=== PATIENT | female | born 1950 | race Caucasian/White ===

== ENCOUNTER → 2017-11-20 | Outpatient (CLI) | payer SELFPAY ==
[2017-11-20 16:58] LABS: BASOPHILS ABSOLUTE AUTO 0.02 K/mm3 (0.00-0.23); BASOPHILS PERCENT AUTO 1 % (0-2); EOSINOPHILS ABSOLUTE AUTO 0.05 K/mm3 (0.00-0.68); EOSINOPHILS PERCENT AUTO 1 % (0-6); Hematocrit 33.9 % (33.0-51.0); Hemoglobin 10.2 g/dL (11.5-16.0); IMMATURE GRAN ABSOLUTE AUTO 0.01 K/mm3 (0.00-0.10); IMMATURE GRAN PERCENT AUTO 0 % (0-1); LYMPHOCYTES ABSOLUTE AUTO 0.87 K/mm3 (0.84-5.20); LYMPHOCYTES PERCENT AUTO 24 % (21-46); MONOCYTES ABSOLUTE AUTO 0.64 K/mm3 (0.16-1.47); MONOCYTES PERCENT AUTO 18 % (4-13); Mean Corpuscular HGB 25.4 pg (26.0-34.0); Mean Corpuscular HGB Conc 30.1 g/dL (31.5-36.5); Mean Corpuscular Volume 84 fL (80-100); Mean Platelet Volume 8.9 fL (9.1-12.4); NEUTROPHILS ABSOLUTE AUTO 2.04 K/mm3 (1.96-9.15); NEUTROPHILS PERCENT AUTO 56 % (41-73); Platelet Count 256 K/mm3 (150-400); RDW Coefficient Variation 16.4 % (11.7-14.2); RDW Standard Deviation 50.4 fL (35.1-46.3); Red Blood Cell Count 4.02 M/mm3 (3.80-5.20); White Blood Cell Count 3.63 K/mm3 (4.00-11.30)
== END ==
LOC: LAB SHORT 16:20 → LAB 16:20
PROVIDERS: Physician Assistant
DX: N39.0 Urinary tract infection, site not specified (principal); R05 Cough
CPT/HCPCS: 85025; 87086

== ENCOUNTER → 2017-12-19 | Outpatient (CLI) | payer OTHER | LOC: LAB 15:21 → LAB SHORT 15:21 | DX: N39.0 Urinary tract infection, site not specified (principal) | CPT/HCPCS: 87086 ==

== ENCOUNTER → 2018-11-09 | Outpatient (CLI) | payer OTHER | END | disposition home or self-care (01) | LOC: LAB 17:03 → LAB SHORT 17:03 | DX: H92.11 Otorrhea, right ear (principal) | CPT/HCPCS: 87070; 87205 ==

== ENCOUNTER 2019-06-24 14:23 | Observation (INO) | payer OTHER ==
[~2019-06-24] VITALS: Ht 154.9 cm; Wt 83.0 kg
[2019-06-24] MEDS ORDERED: IBUP400 PO (14:58)
[2019-06-24] MEDS ORDERED: BUPROPION XL450 MG PO ×2 (14:59)
[2019-06-24] MEDS ORDERED: LEVSOD100 PO ×2 (15:01)
[2019-06-24 15:02] LABS: BASOPHILS ABSOLUTE AUTO 0.03 K/mm3 (0.00-0.23); BASOPHILS PERCENT AUTO 1 % (0-2); EOSINOPHILS ABSOLUTE AUTO 0.17 K/mm3 (0.00-0.68); EOSINOPHILS PERCENT AUTO 3 % (0-6); Hematocrit 31.6 % (33.0-51.0); Hemoglobin 9.4 g/dL (11.5-16.0); IMMATURE GRAN ABSOLUTE AUTO 0.02 K/mm3 (0.00-0.10); IMMATURE GRAN PERCENT AUTO 0 % (0-1); LYMPHOCYTES ABSOLUTE AUTO 1.02 K/mm3 (0.84-5.20); LYMPHOCYTES PERCENT AUTO 16 % (21-46); MONOCYTES ABSOLUTE AUTO 0.44 K/mm3 (0.16-1.47); MONOCYTES PERCENT AUTO 7 % (4-13); Mean Corpuscular HGB 26.9 pg (26.0-34.0); Mean Corpuscular HGB Conc 29.7 g/dL (31.5-36.5); Mean Corpuscular Volume 91 fL (80-100); Mean Platelet Volume 8.6 fL (9.1-12.4); NEUTROPHILS ABSOLUTE AUTO 4.76 K/mm3 (1.96-9.15); NEUTROPHILS PERCENT AUTO 74 % (41-73); Platelet Count 274 K/mm3 (150-400); RDW Coefficient Variation 15.9 % (11.7-14.2); RDW Standard Deviation 52.9 fL (35.1-46.3); Red Blood Cell Count 3.49 M/mm3 (3.80-5.20); White Blood Cell Count 6.44 K/mm3 (4.00-11.30)
[2019-06-24 15:20] LABS: Alanine Aminotransfer (ALT/SGP 15 U/L (12-78); Albumin, Blood 2.9 g/dL (3.4-5.0); Albumin/Globulin Ratio 0.8 (0.8-1.8); Alk Phos 51 U/L (50-136); Anion Gap 5 mmol/L (6-16); Aspartate Aminotrans (AST/SGOT 11 U/L (12-37); Bilirubin, Total 0.3 mg/dL (0.1-1.0); Blood Urea Nitrogen 24 mg/dL (8-24); Bun/Creatinine Ratio 25.1 (12.0-20.0); CO2, Blood 28 mmol/L (21-32); Chloride, Blood 112 mmol/L (98-108); Creatinine, Blood 0.96 mg/dL (0.40-1.00); Globulin, Blood 3.5 g/dL (2.2-4.0); Glomerular Filtration Rate >60 (60-); Glucose, Blood 93 mg/dL (70-99); Potassium, Blood 4.5 mmol/L (3.5-5.5); Sodium, Blood 145 mmol/L (136-145); Total Protein, Blood 6.4 g/dL (6.4-8.2)
[2019-06-24] MEDS ORDERED: Ventolin/Prove6.7 GM INH ×2 (17:34)
[2019-06-24] MEDS ORDERED: Prozac40 MG PO ×2 (17:37)
[2019-06-24] MEDS ORDERED: Aspir 8181 MG PO ×2 (19:59)
[2019-06-24] MEDS ORDERED: VITAMIN D PO ×2 (19:59)
[2019-06-24] MEDS ORDERED: B Complex-Foli1 EACH PO ×2 (20:00)
[2019-06-24 20:02] LABS: Troponin I <0.015 ng/mL (0.000-0.040)
[2019-06-24] MEDS ORDERED: LORA1SY PO ×2 (21:40)
[2019-06-25 01:35] LABS: Hematocrit 29.1 % (33.0-51.0); Hemoglobin 8.6 g/dL (11.5-16.0); Mean Corpuscular HGB 26.6 pg (26.0-34.0); Mean Corpuscular HGB Conc 29.6 g/dL (31.5-36.5); Mean Corpuscular Volume 90 fL (80-100); Mean Platelet Volume 8.2 fL (9.1-12.4); Platelet Count 240 K/mm3 (150-400); RDW Coefficient Variation 15.8 % (11.7-14.2); Red Blood Cell Count 3.23 M/mm3 (3.80-5.20)
[2019-06-25 01:51] LABS: Anion Gap 6 mmol/L (6-16); Blood Urea Nitrogen 21 mg/dL (8-24); Bun/Creatinine Ratio 21.9 (12.0-20.0); CO2, Blood 28 mmol/L (21-32); Calcium, Blood 8.6 mg/dL (8.5-10.1); Chloride, Blood 113 mmol/L (98-108); Creatinine, Blood 0.96 mg/dL (0.40-1.00); Glomerular Filtration Rate >60 (60-); Glucose, Blood 99 mg/dL (70-99); Potassium, Blood 3.9 mmol/L (3.5-5.5); Sodium, Blood 147 mmol/L (136-145)
--- NOTE | 2019-06-25 10:45 | NUR ---
0750 IT WAS NOTED AT SHIFT CHANGE THAT PT HAS BEEN TOLD THAT RASH TO LLQ ABD MAYBE SHINGLES BY HER PCP AND ER PHYSICIAN PER PT REPORT. RASH ASSESSED, RED RAISED BLISTERY RASH INTACT WITH NO DRAINAGE, PT REPORTS PAIN 9/10 THAT RADIATES FROM ABD TO BACK. INFECTION CONTROL AND CN NOTIFIED, AIRBORNE PRECAUTIONS INITITATED. PT'S PAIN MANAGED WELL WITH CURRENT ORDERS. BOWEL PREP STARTED. NO N/V, SOB. SMALL ABRASION TO NOSE SCABBED. 1012 PT TRANSFERED FROM RM 304 TO RM 335 FOR NEGATIVE PRESSURE ROOM PER PROTOCOL. REPORT GIVEN TO DORA MICHELLE AND DORA MCCLURE PRIOR TO TRANSFER. DR. DELEON IN TO SEE PT PRIOR TO TRANSFER.
--- NOTE | 2019-06-25 14:20 | NUR ---
Echocardiogram completed.
--- NOTE | 2019-06-25 17:23 | NUR ---
PT TRANSFERED TO NEGATIVE PRESSURE ROOM THIS AM FOR SUSPECTED SHINGLES. PT INDEPENDENT IN ROOM. PT ON GO-LYTELY FOR COLONOSCOMY. PT BOWEL MOVEMENTS CONTINUE TO BE BROWN AND CONTAIN MODERATE AMOUNTS OF STOOL. PT MEDICATED FOR PAIN RELATED TO SUSPECTED SHINGLES. PT STATES ACCEPTABLE LEVEL OF PAIN AT THIS TIME. PT RESTING IN BED BETWEEN BOWEL MOVEMENTS. WILL CONTINUE TO MONITOR.
--- NOTE | 2019-06-25 18:26 | NUR ---
FIELD START IV TO LEFT AC PATENT, BUT LEAKING SLIGHTLY. WILL MONITOR.
--- NOTE | 2019-06-25 18:54 | NUR ---
06/25/19 1854 Eliseo Adair PATIENT DETERMINED TO BE ASA APPROPRIATE FOR PROPOFOL SEDATION PRIOR TO START OF PROCEDURE BY DR. Celena Ivan PlacedPatient to ENDO 1. History, Chart, Medications and Allergies reviewed before start of procedure. MONITOR INTACT WITH CONTINUOUS PULSE OXIMETRY AND INTERMITTENT BP. O2 VIA N/C INTACT THROUGHOUT SEDATION/PROCEDURE.
--- NOTE | 2019-06-26 05:24 | NUR ---
PATIENT HAD BEEN ABLE TO DRINK APPROXIMATELY 1200CC OF GOLYTE. SHE HAS BEEN ABLE TO GET TO THE [facility] INDEPENDENTLY. HER STOOL IS MORE CLEAR WITH LIGHT BROWN GRAINS IN THE CLEAR WATER. sHE IS INSTRUCTED TO CONTINUE TO DRINK THE GOLYTE UNTIL APPROX. 7AM.
[2019-06-26 05:47] LABS: BASOPHILS ABSOLUTE AUTO 0.02 K/mm3 (0.00-0.23); BASOPHILS PERCENT AUTO 0 % (0-2); EOSINOPHILS ABSOLUTE AUTO 0.11 K/mm3 (0.00-0.68); EOSINOPHILS PERCENT AUTO 3 % (0-6); Hematocrit 29.8 % (33.0-51.0); Hemoglobin 8.8 g/dL (11.5-16.0); IMMATURE GRAN ABSOLUTE AUTO 0.01 K/mm3 (0.00-0.10); IMMATURE GRAN PERCENT AUTO 0 % (0-1); LYMPHOCYTES ABSOLUTE AUTO 0.87 K/mm3 (0.84-5.20); LYMPHOCYTES PERCENT AUTO 20 % (21-46); MONOCYTES ABSOLUTE AUTO 0.44 K/mm3 (0.16-1.47); MONOCYTES PERCENT AUTO 10 % (4-13); Mean Corpuscular HGB 26.7 pg (26.0-34.0); Mean Corpuscular HGB Conc 29.5 g/dL (31.5-36.5); Mean Corpuscular Volume 90 fL (80-100); Mean Platelet Volume 8.6 fL (9.1-12.4); NEUTROPHILS PERCENT AUTO 67 % (41-73); Platelet Count 237 K/mm3 (150-400); RDW Standard Deviation 52.7 fL (35.1-46.3); White Blood Cell Count 4.45 K/mm3 (4.00-11.30)
[2019-06-26 06:04] LABS: Anion Gap 6 mmol/L (6-16); Blood Urea Nitrogen 8 mg/dL (8-24); Bun/Creatinine Ratio 8.8 (12.0-20.0); CO2, Blood 27 mmol/L (21-32); Chloride, Blood 111 mmol/L (98-108); Creatinine, Blood 0.91 mg/dL (0.40-1.00); Glomerular Filtration Rate >60 (60-); Glucose, Blood 80 mg/dL (70-99); Sodium, Blood 144 mmol/L (136-145)
--- NOTE | 2019-06-26 09:08 | NUR ---
INTO SDS VIA [email or web address]. PT REPORTS 6/10 LEFT GROIN PAIN THAT RADIATES TO HER BACK. NPO STATUS CONFIRMED. BOWEL PREP CONFIRMED TO BE CLEAR.
--- NOTE | 2019-06-26 09:18 | NUR ---
06/26/19 0918 Eliseo Adair PATIENT DETERMINED TO BE ASA APPROPRIATE FOR PROPOFOL SEDATION PRIOR TO START OF PROCEDURE BY DR. Celena Ivan Placed3-LEAD EKG REVIEWED WITH PHYSICIAN PRIOR TO START OF PROCEDURE.Patient to ENDO 1History, Chart, Medications and Allergies reviewed before start of procedure.LUNGS CLEAR T/O TO AUSCULTATION.MONITOR INTACT WITH CONTINUOUS PULSE OXIMETRY AND INTERMITTENT BP.O2 VIA N/C INTACT THROUGHOUT SEDATION/PROCEDURE.
--- NOTE | 2019-06-26 14:09 | NUR ---
SHE WAS CLEAR AFTER HER BOWEL PREP. SHE HAD AN UPPER AND LOWER GI SCOPE THIS MORNING. SHE WAS STABLE AFTERWARDS. HER BP DROPPED SOME WHEN SHE SAT UP DURING ORTHOSTATIC VS BUT WENT RIGHT BACK UP WHEN SHE STOOD. NO DIZZINESS, CP OR SOB. SHE RECEIVED IV FENTANYL X1 FOR HER SHINGLES PAIN AT HER L INGUINAL AREA. IT HELPED. I STARTED A FENTANYL PATCH AND LATER WILL DC HER HOME. FAMILY VISITED X1 SO FAR TODAY. SHE IS NAPPING NOW. TELE NSR. SHE HAS BEEN IN AIRBORNE ISOLATION FOR SHINGLES. IT IS A SMALL PATCH AND THEY ARE DRY.
[2019-06-26] MEDS ORDERED: ACET325 PO ×2 (14:22)
[2019-06-26] MEDS ORDERED: MIRALAX17 GM PO ×2 (14:22)
[2019-06-26] MEDS ORDERED: Valtrex1000 MG PO ×2 (14:23)
--- NOTE | 2019-06-26 18:13 | NUR ---
DISCHARGED TO HOME AT 1727 WITH BELONGINGS AND INSTRUCTIONS. HER FENTANYL PATCH IS ON. SHE NAPPED WELL AFTER HER SCOPES IN DAY SURGERY. SHE IS STEADY ON HER FEET. NO NEW COMPLAINTS.
== END 2019-06-26 17:29 | disposition home or self-care (01) ==
LOC: ER 14:23 → MEDS 14:24 → ENPENDDIS 06-26 14:15 → MEDS 06-26 17:29
PROVIDERS: Emergency Medicine; Internal Medicine; ADMIT Internal Medicine
DX: D50.9 Iron deficiency anemia, unspecified (principal); K59.00 Constipation, unspecified; D12.3 Benign neoplasm of transverse colon; D12.5 Benign neoplasm of sigmoid colon; K63.89 Other specified diseases of intestine; K63.5 Polyp of colon; K29.41 Chronic atrophic gastritis with bleeding; K44.9 Diaphragmatic hernia without obstruction or gangrene; K31.7 Polyp of stomach and duodenum; K64.8 Other hemorrhoids; E03.9 Hypothyroidism, unspecified; E78.5 Hyperlipidemia, unspecified; E66.9 Obesity, unspecified; E86.0 Dehydration; R21 Rash and other nonspecific skin eruption; F32.9 Major depressive disorder, single episode, unspecified; Z79.899 Other long term (current) drug therapy; Z95.1 Presence of aortocoronary bypass graft; Z91.81 History of falling
CPT/HCPCS: 36415; 70450; 74176; 80048; 80053; 82272; 84443; 84484; 85025; 85027; 88305; 88342; 93306; 93880; 94640; 94760; 96365; 96375; 96376; 97162; 97530; 99285-25; A9270; G0378; J2704; J2916; J3010; J7030; J7120

== ENCOUNTER 2019-06-28 02:45 | Emergency (ER) | payer OTHER ==
[~2019-06-28] VITALS: Ht 154.9 cm; Wt 77.1 kg
[~2019-06-28 02:45] MED LIST: ACET325 PO; Aspir 8181 MG PO; B Complex-Foli1 EACH PO; BUPROPION XL450 MG PO; IBUP400 PO; LEVSOD100 PO; LORA1SY PO; MIRALAX17 GM PO; Prozac40 MG PO; VITAMIN D PO; Valtrex1000 MG PO; Ventolin/Prove6.7 GM INH
== END 2019-06-28 03:54 | disposition home or self-care (01) ==
LOC: ER 02:45
DX: I80.8 Phlebitis and thrombophlebitis of other sites (principal); Z79.899 Other long term (current) drug therapy; F32.9 Major depressive disorder, single episode, unspecified; E03.9 Hypothyroidism, unspecified; Z87.891 Personal history of nicotine dependence
CPT/HCPCS: 99283

== ENCOUNTER → 2019-10-22 | Outpatient (CLI) | payer OTHER | END | disposition home or self-care (01) | LOC: LAB 10:10 → LAB SHORT 10:10 | DX: D51.8 Other vitamin B12 deficiency anemias (principal) | CPT/HCPCS: 82607; 82746 ==

== ENCOUNTER 2020-10-24 08:05 | Day surgery (SDC) | payer MEDICARE ==
[~2020-10-24] VITALS: Ht 154.9 cm; Wt 83.1 kg
[~2020-10-24 08:05] MED LIST changes: +8 HOUR ACETAMI650 MG PO; +ALBU90OI INH; +BUPROPION XL150 M1 PO
[2020-10-24] MEDS ORDERED: ATOR20 PO (08:28)
== END 2020-10-24 10:02 | disposition home or self-care (01) ==
LOC: ORSCSDS 08:05
PROVIDERS: Ophthalmology
PROC: 08RJ3JZ Replacement of Right Lens with Synthetic Substitute, Percutaneous Approach (ICD-10-PCS; principal; 2020-10-24 09:15)
DX: H25.11 Age-related nuclear cataract, right eye (principal); Z12.11 Encounter for screening for malignant neoplasm of colon; I25.10 Atherosclerotic heart disease of native coronary artery without angina pectoris; J44.9 Chronic obstructive pulmonary disease, unspecified; E66.9 Obesity, unspecified; Z68.34 Body mass index [BMI] 34.0-34.9, adult; Z79.899 Other long term (current) drug therapy
CPT/HCPCS: A9270; J2001; J2250; J3010; J3301; J7040; V2632

== ENCOUNTER → 2021-01-20 | Outpatient (CLI) | payer MEDICARE ==
[~2021-01-20] MED LIST changes: +ATOR20 PO; +CYCL10 PO
== END ==
LOC: LAB SHORT 16:47 → LAB EV 16:47
DX: N39.0 Urinary tract infection, site not specified (principal)
CPT/HCPCS: 87086

== ENCOUNTER 2021-03-08 07:35 | Day surgery (SDC) | payer MEDICARE ==
[~2021-03-08] VITALS: Ht 154.9 cm; Wt 86.8 kg
[~2021-03-08 07:35] MED LIST changes: -CYCL10 PO
[2021-03-08] MEDS ORDERED: CYCL10 PO (07:49)
--- NOTE | 2021-03-08 07:58 | NUR ---
03/08/21 0758 Sultana Partida ([place] AT 0751.
== END 2021-03-08 09:30 | disposition home or self-care (01) ==
LOC: ORSCSDS 07:35
PROVIDERS: Ophthalmology
PROC: 08RK3JZ Replacement of Left Lens with Synthetic Substitute, Percutaneous Approach (ICD-10-PCS; principal; 2021-03-08 08:45)
DX: H25.12 Age-related nuclear cataract, left eye (principal); I10 Essential (primary) hypertension; J44.9 Chronic obstructive pulmonary disease, unspecified; F32.9 Major depressive disorder, single episode, unspecified; E66.9 Obesity, unspecified; Z68.36 Body mass index [BMI] 36.0-36.9, adult; Z79.899 Other long term (current) drug therapy
CPT/HCPCS: J2001; J2250; J3010; J3301; J7040; V2632

== ENCOUNTER → 2021-05-09 | Outpatient (CLI) | payer MEDICARE ==
[~2021-05-09] MED LIST changes: +CYCL10 PO
== END | disposition home or self-care (01) ==
LOC: LAB SHORT 16:45
DX: R82.79 Other abnormal findings on microbiological examination of urine (principal)
CPT/HCPCS: 87086

== ENCOUNTER 2021-11-24 12:59 | Emergency (ER) | payer MEDICARE ==
[~2021-11-24] VITALS: Ht 154.9 cm; Wt 86.2 kg
[2021-11-24 13:33] LABS: BASOPHILS ABSOLUTE AUTO 0.02 K/mm3 (0.00-0.23); BASOPHILS PERCENT AUTO 0 % (0-2); EOSINOPHILS ABSOLUTE AUTO 0.16 K/mm3 (0.00-0.68); EOSINOPHILS PERCENT AUTO 3 % (0-6); Hemoglobin 11.6 g/dL (11.5-16.0); IMMATURE GRAN ABSOLUTE AUTO 0.01 K/mm3 (0.00-0.10); IMMATURE GRAN PERCENT AUTO 0 % (0-1); LYMPHOCYTES ABSOLUTE AUTO 1.16 K/mm3 (0.84-5.20); LYMPHOCYTES PERCENT AUTO 24 % (21-46); MONOCYTES ABSOLUTE AUTO 0.38 K/mm3 (0.16-1.47); MONOCYTES PERCENT AUTO 8 % (4-13); Mean Corpuscular HGB 28.6 pg (26.0-34.0); Mean Corpuscular HGB Conc 30.5 g/dL (31.5-36.5); Mean Corpuscular Volume 94 fL (80-100); NEUTROPHILS ABSOLUTE AUTO 3.04 K/mm3 (1.96-9.15); NEUTROPHILS PERCENT AUTO 64 % (41-73); Platelet Count 236 K/mm3 (150-400); RDW Coefficient Variation 18.5 % (11.7-14.2); RDW Standard Deviation 64.7 fL (35.1-46.3); Red Blood Cell Count 4.05 M/mm3 (3.80-5.20); White Blood Cell Count 4.77 K/mm3 (4.00-11.30)
[2021-11-24 13:51] LABS: Albumin, Blood 3.3 g/dL (3.4-5.0); Albumin/Globulin Ratio 0.8 (0.8-1.8); Bilirubin, Total 0.4 mg/dL (0.1-1.0); Bun/Creatinine Ratio 20.9 (12.0-20.0); Calcium, Blood 9.6 mg/dL (8.5-10.1); Creatinine, Blood 0.96 mg/dL (0.40-1.00); Potassium, Blood 4.3 mmol/L (3.5-5.5); Total Protein, Blood 7.3 g/dL (6.4-8.2)
== END 2021-11-24 15:30 | disposition home or self-care (01) ==
LOC: ER 12:59
PROVIDERS: Physician Assistant
DX: R41.82 Altered mental status, unspecified (principal); R26.81 Unsteadiness on feet; E03.9 Hypothyroidism, unspecified; Z79.899 Other long term (current) drug therapy; Z87.891 Personal history of nicotine dependence
CPT/HCPCS: 36415; 70450; 80053; 85025; 93005; 93010; 99285-25

== ENCOUNTER → 2022-12-19 | Outpatient (CLI) | payer MEDICARE ==
[2022-12-19 14:35] LABS: Stool Occult Bld Immuno 1 Negative (NEGATIVE)
== END | disposition home or self-care (01) ==
LOC: LAB 11:47 → LAB SHORT 11:47
PROVIDERS: Family Medicine
DX: D50.0 Iron deficiency anemia secondary to blood loss (chronic) (principal)
CPT/HCPCS: G0328

== ENCOUNTER → 2022-12-26 | Outpatient (CLI) | payer MEDICARE ==
[2022-12-27 08:33] LABS: Stool Occult Bld Immuno 1 Negative (NEGATIVE)
== END | disposition home or self-care (01) ==
LOC: LAB SHORT 16:32 → LAB 16:32
PROVIDERS: Family Medicine
DX: D50.0 Iron deficiency anemia secondary to blood loss (chronic) (principal)
CPT/HCPCS: 82274

== ENCOUNTER → 2022-12-27 | Outpatient (CLI) | payer MEDICARE ==
[2022-12-28 09:19] LABS: Stool Occult Bld Immuno 1 Positive (NEGATIVE)
== END | disposition home or self-care (01) ==
LOC: LAB SHORT 15:47 → LAB 15:47
PROVIDERS: Family Medicine
DX: D50.0 Iron deficiency anemia secondary to blood loss (chronic) (principal)
CPT/HCPCS: 82274

== ENCOUNTER 2023-01-07 01:34 | Day surgery (SDC) | payer MEDICARE ==
[2023-01-07 14:21] VITALS: BP 130/79
== END 2023-01-07 15:15 | disposition home or self-care (01) ==
LOC: ATC 01:34
DX: D50.0 Iron deficiency anemia secondary to blood loss (chronic) (principal); E78.5 Hyperlipidemia, unspecified; E03.9 Hypothyroidism, unspecified
CPT/HCPCS: J2916

== ENCOUNTER 2023-01-14 02:32 | Day surgery (SDC) | payer MEDICARE ==
[2023-01-14 13:51] VITALS: BP 152/70
== END 2023-01-14 14:55 | disposition home or self-care (01) ==
LOC: ATC 02:32
DX: D50.0 Iron deficiency anemia secondary to blood loss (chronic) (principal); E03.9 Hypothyroidism, unspecified; E78.5 Hyperlipidemia, unspecified; R91.8 Other nonspecific abnormal finding of lung field; G89.29 Other chronic pain; M54.9 Dorsalgia, unspecified; Z79.890 Hormone replacement therapy; Z79.899 Other long term (current) drug therapy
CPT/HCPCS: 96365; J2916

== ENCOUNTER 2023-01-21 03:12 | Day surgery (SDC) | payer MEDICARE ==
[2023-01-21 13:55] VITALS: BP 137/79
== END 2023-01-21 14:58 | disposition home or self-care (01) ==
LOC: ATC 03:12
DX: D50.0 Iron deficiency anemia secondary to blood loss (chronic) (principal); E03.9 Hypothyroidism, unspecified; E78.5 Hyperlipidemia, unspecified
CPT/HCPCS: J2916

== ENCOUNTER 2023-06-17 14:58 | Emergency (ER) | payer MEDICARE ==
[~2023-06-17] VITALS: Ht 154.9 cm; Wt 86.2 kg
[2023-06-17 15:25] LABS: BASOPHILS ABSOLUTE AUTO 0.03 K/mm3 (0.00-0.23); BASOPHILS PERCENT AUTO 1 % (0-2); EOSINOPHILS ABSOLUTE AUTO 0.22 K/mm3 (0.00-0.68); EOSINOPHILS PERCENT AUTO 5 % (0-6); Hematocrit 38.1 % (33.0-51.0); Hemoglobin 12.3 g/dL (11.5-16.0); IMMATURE GRAN ABSOLUTE AUTO 0.04 K/mm3 (0.00-0.10); IMMATURE GRAN PERCENT AUTO 1 % (0-1); LYMPHOCYTES ABSOLUTE AUTO 1.57 K/mm3 (0.84-5.20); LYMPHOCYTES PERCENT AUTO 33 % (21-46); MONOCYTES ABSOLUTE AUTO 0.39 K/mm3 (0.16-1.47); MONOCYTES PERCENT AUTO 8 % (4-13); Mean Corpuscular HGB 32.5 pg (26.0-34.0); Mean Corpuscular HGB Conc 32.3 g/dL (31.5-36.5); Mean Corpuscular Volume 101 fL (80-100); Mean Platelet Volume 8.9 fL (9.1-12.4); NEUTROPHILS ABSOLUTE AUTO 2.56 K/mm3 (1.96-9.15); NEUTROPHILS PERCENT AUTO 53 % (41-73); Platelet Count 197 K/mm3 (150-400); RDW Coefficient Variation 15.4 % (11.7-14.2); RDW Standard Deviation 57.2 fL (35.1-46.3); Red Blood Cell Count 3.78 M/mm3 (3.80-5.20); White Blood Cell Count 4.81 K/mm3 (4.00-11.30)
[2023-06-17 15:57] LABS: Albumin, Blood 3.4 g/dL (3.4-5.0); Albumin/Globulin Ratio 0.9 (0.8-1.8); Bilirubin, Total 0.7 mg/dL (0.1-1.0); Bun/Creatinine Ratio 17.2 (12.0-20.0); Calcium, Blood 9.5 mg/dL (8.5-10.1); Creatinine, Blood 1.28 mg/dL (0.40-1.00); Globulin, Blood 3.8 g/dL (2.2-4.0); Potassium, Blood 4.4 mmol/L (3.5-5.5); Total Protein, Blood 7.2 g/dL (6.4-8.2)
[2023-06-17 16:09] LABS: Influenza A, PCR NEGATIVE (NEGATIVE); Influenza B, PCR NEGATIVE (NEGATIVE); Resp Syncytial Virus, PCR NEGATIVE (NEGATIVE); SARS-Cov-2 (COVID-19) PCR, MMC NEGATIVE (NEGATIVE)
[2023-06-17 16:34] LABS: Source, Urine Clean Catch
[2023-06-17 16:39] LABS: Bilirubin, Urine Neg (Neg); Blood, Urine 1+ (Neg); Color, Urine Yellow (P-Yellow); Glucose Qualitative, Urine Neg (Neg); Ketones, Urine Neg (Neg); Leukocyte Esterase, Urine 3+ (Neg); Nitrite, Urine Neg (Neg); Protein, Urine Neg (Neg); Specific Gravity, Urine 1.015 (1.003-1.022); Urobilinogen, Urine NORM (Normal); pH, Urine 6.5 (5.0-8.0)
[2023-06-17 16:41] VITALS: BP 164/64
[2023-06-17 17:06] LABS: Appearance, Urine Hazy (Clear)
[2023-06-17 17:08] LABS: Bacteria Many /hpf; Mucus Light (0-Heavy); Squamous Epithelial Cells Few /hpf (Few); Transitional Epithelial Cells Rare /hpf (0-Rare); White Blood Cells, Urine 25-50 /hpf (0-5)
[2023-06-17] MEDS ORDERED: CEFD300 PO (18:11)
== END 2023-06-17 18:27 | disposition home or self-care (01) ==
LOC: ER 14:58
PROVIDERS: Student in an Organized Health Care Education/Training Program
DX: K59.00 Constipation, unspecified (principal); E03.9 Hypothyroidism, unspecified; N39.0 Urinary tract infection, site not specified; J44.9 Chronic obstructive pulmonary disease, unspecified; Z79.890 Hormone replacement therapy; Z79.899 Other long term (current) drug therapy; Z87.891 Personal history of nicotine dependence
CPT/HCPCS: 0241U; 74018; 80053; 81001; 83690; 84443; 85025; 87077; 87086; 87147; 87186; 96374; 96375; 99284-25; A9270; J1885; J2405

== ENCOUNTER → 2024-05-14 | Outpatient (CLI) | payer MEDICARE ==
[~2024-05-14] MED LIST changes: -8 HOUR ACETAMI650 MG PO; +Acetaminophen650 M1 PO; +CEFD300 PO; +FURO20 PO; +METO25 PO; +MIDO5 PO; +NITR.4SL SL; +PRED20 PO; +Prozac20 MG PO
== END | disposition home or self-care (01) ==
LOC: LAB SHORT 09:21 → LAB 09:21
DX: N39.0 Urinary tract infection, site not specified (principal)
CPT/HCPCS: 87077; 87086; 87186

== ENCOUNTER 2024-09-06 15:14 | Emergency (ER) | payer MEDICARE ==
[~2024-09-06] VITALS: Ht 154.9 cm; Wt 81.7 kg
[2024-09-06] MEDS ORDERED: Ipratropium/Albuterol SulF 2.5-0.5MG/3 ML Amp INH ONE (15:30)
[2024-09-06 15:47] LABS: BASOPHILS ABSOLUTE AUTO 0.02 K/mm3 (0.00-0.23); BASOPHILS PERCENT AUTO 0 % (0-2); EOSINOPHILS ABSOLUTE AUTO 0.29 K/mm3 (0.00-0.68); EOSINOPHILS PERCENT AUTO 5 % (0-6); Hematocrit 35.7 % (33.0-51.0); Hemoglobin 11.8 g/dL (11.5-16.0); IMMATURE GRAN ABSOLUTE AUTO 0.02 K/mm3 (0.00-0.10); IMMATURE GRAN PERCENT AUTO 0 % (0-1); LYMPHOCYTES ABSOLUTE AUTO 1.51 K/mm3 (0.84-5.20); LYMPHOCYTES PERCENT AUTO 28 % (21-46); MONOCYTES ABSOLUTE AUTO 0.64 K/mm3 (0.16-1.47); MONOCYTES PERCENT AUTO 12 % (4-13); Mean Corpuscular HGB 30.7 pg (26.0-34.0); Mean Corpuscular HGB Conc 33.1 g/dL (31.5-36.5); Mean Corpuscular Volume 93 fL (80-100); Mean Platelet Volume 8.7 fL (9.1-12.4); NEUTROPHILS ABSOLUTE AUTO 2.98 K/mm3 (1.96-9.15); NEUTROPHILS PERCENT AUTO 55 % (41-73); Platelet Count 252 K/mm3 (150-400); RDW Coefficient Variation 13.8 % (11.7-14.2); RDW Standard Deviation 46.4 fL (35.1-46.3); Red Blood Cell Count 3.84 M/mm3 (3.80-5.20); White Blood Cell Count 5.46 K/mm3 (4.00-11.30)
[2024-09-06 16:10] LABS: Albumin/Globulin Ratio 0.7 (0.8-1.8); Bilirubin, Total 0.8 mg/dL (0.1-1.0); Bun/Creatinine Ratio 11.5 (12.0-20.0); Calcium, Blood 9.9 mg/dL (8.5-10.1); Creatinine, Blood 1.3 mg/dL (0.40-1.00); Globulin, Blood 4.2 g/dL (2.2-4.0); Potassium, Blood 4.2 mmol/L (3.5-5.5); Total Protein, Blood 7.2 g/dL (6.4-8.2)
[2024-09-06 16:34] LABS: Influenza A, PCR NEGATIVE (NEGATIVE); Influenza B, PCR NEGATIVE (NEGATIVE); Resp Syncytial Virus, PCR NEGATIVE (NEGATIVE); SARS-Cov-2 (COVID-19) PCR, MMC NEGATIVE (NEGATIVE)
[2024-09-06 18:44] VITALS: BP 164/84
[2024-09-06] MEDS ORDERED: MethylPREDNISolone Sod Succ 125 MG Vial IV ONE (19:35)
[2024-09-06] MEDS ORDERED: AZIT250 PO (19:36)
[2024-09-06] MEDS ORDERED: PRED20 PO (19:36)
[2024-09-06] MEDS ORDERED: RX Prepack Albuterol 1 PREPACK/6.7 GM INH UD ONE (19:40)
== END 2024-09-06 20:08 | disposition home or self-care (01) ==
LOC: ER 15:14
PROVIDERS: Emergency Medicine
DX: J44.1 Chronic obstructive pulmonary disease with (acute) exacerbation (principal); E03.9 Hypothyroidism, unspecified; E78.5 Hyperlipidemia, unspecified; Z99.81 Dependence on supplemental oxygen; Z87.891 Personal history of nicotine dependence; Z79.52 Long term (current) use of systemic steroids; Z79.899 Other long term (current) drug therapy
CPT/HCPCS: 0241U; 71045; 71260; 80053; 83880; 84484; 85025; 85379; 93005; 93010; 94640; 96374-59; 99285-25; A9270; J2919; Q9967